=== PATIENT | male | born 1945 | race Caucasian/White ===

== ENCOUNTER → 2018-04-22 08:32 | Outpatient (CLI) | payer MEDICARE, BC, SELFPAY ==
[2018-04-22 09:21] LABS: BUN Creatinine Ratio 20.9 (6-22); Blood Urea Nitrogen 23 mg/dL (9-20); Carbon Dioxide 29 mmol/L (22-32); Chloride 102 mmol/L (98-107); Cholesterol 127 mg/dL (140-199); Estimated Glomerular Filt Rate > 60.0 mL/min (>60); Glucose 116 mg/dL (80-110); HDL Cholesterol 51 mg/dL (40-60); HEMOLYSIS < 15 (0-50); LDL Cholesterol Calculated 65 mg/dL (<100); Potassium 4.4 mmol/L (3.4-5.1); Sodium 139 mmol/L (137-145); Triglycerides 56 mg/dL (35-150)
[2018-04-22 09:30] LABS: Hemoglobin A1C% w Est Avg Glu 5.9 % (4.0-6.0)
== END ==
PROVIDERS: Visit Provider Internal Medicine
DX: I10 Essential (primary) hypertension (principal); R73.01 Impaired fasting glucose
CPT/HCPCS: 36415; 80048; 80061; 83036

== ENCOUNTER → 2019-05-10 14:06 | Outpatient (CLI) | payer MEDICARE, BC, SELFPAY | PROVIDERS: PCP Internal Medicine; Referring Provider Internal Medicine; Visit Provider Internal Medicine | DX: M85.88 Other specified disorders of bone density and structure, other site (principal); Z82.62 Family history of osteoporosis; Z87.891 Personal history of nicotine dependence | CPT/HCPCS: 77080 ==

== ENCOUNTER → 2019-05-11 08:54 | Outpatient (CLI) | payer MEDICARE, BC, SELFPAY ==
[2019-05-11 10:00] LABS: Aspartate Aminotransferase 27 IU/L (17-59); BUN Creatinine Ratio 21.1 (6-22); Blood Urea Nitrogen 20 mg/dL (9-20); Calcium 10.2 mg/dL (8.4-10.2); Carbon Dioxide 31 mmol/L (22-32); Chloride 102 mmol/L (98-107); Cholesterol 176 mg/dL (140-199); Estimated Glomerular Filt Rate > 60.0 mL/min (>60); Glucose 105 mg/dL (80-110); HDL Cholesterol 49 mg/dL (40-60); HEMOLYSIS < 15 (0-50); LDL Cholesterol Calculated 112 mg/dL (<100); Potassium 5.1 mmol/L (3.4-5.1); Sodium 137 mmol/L (137-145); Triglycerides 76 mg/dL (35-150)
== END ==
PROVIDERS: PCP Internal Medicine; Referring Provider Internal Medicine; Visit Provider Internal Medicine
DX: I10 Essential (primary) hypertension (principal); E78.2 Mixed hyperlipidemia
CPT/HCPCS: 36415; 80048; 80061; 84450

== ENCOUNTER → 2020-01-27 09:51 | Outpatient (CLI) | payer MEDICARE, BC, SELFPAY ==
--- NOTE | 2020-01-27 09:53 | DI.US.S_ITS ---
PROCEDURE: US ABDOMEN LIMITED INDICATIONS: VENTRAL HERNIA. ABDOMINAL WALL HERNIA TECHNIQUE: Real-time focused scanning was performed of the abdomen, with image documentation. COMPARISON: None. FINDINGS: At the area of clinical concern within the mid upper abdominal region to the left of the midline, there is a hernia seen which contains fluid and fat. No definite bowel is seen at this time. IMPRESSION: Ventral wall hernia seen at the area of clinical concern involving the upper abdomen. Please consider surgical consultation as well as a CT for further evaluation. Dictated by: Colton Vizcarra M.D. on 01/27/2020 at 10:18 Approved by: Colton Vizcarra M.D. on 01/27/2020 at 10:20
== END ==
PROVIDERS: PCP Internal Medicine; Referring Provider Internal Medicine; Visit Provider Internal Medicine
DX: K43.9 Ventral hernia without obstruction or gangrene (principal)
CPT/HCPCS: 76705

== ENCOUNTER → 2020-05-30 18:54 | Outpatient (ROUT) | payer MEDICARE, BC, SELFPAY ==
[2020-05-30 19:44] LABS: Aspartate Aminotransferase 25 IU/L (17-59); BUN Creatinine Ratio 29.5 (6-22); Blood Urea Nitrogen 28 mg/dL (9-20); Calcium 10.4 mg/dL (8.4-10.2); Carbon Dioxide 32 mmol/L (22-32); Chloride 102 mmol/L (98-107); Cholesterol 184 mg/dL (140-199); Estimated Glomerular Filt Rate > 60.0 mL/min (>60); Glucose 106 mg/dL (80-110); HDL Cholesterol 61 mg/dL (40-60); HEMOLYSIS < 15 (0-50); LDL Cholesterol Calculated 102 mg/dL (<100); Potassium 4.4 mmol/L (3.4-5.1); Sodium 140 mmol/L (137-145); Triglycerides 104 mg/dL (35-150)
== END ==
PROVIDERS: PCP Internal Medicine; Visit Provider Internal Medicine
DX: I10 Essential (primary) hypertension (principal); E78.2 Mixed hyperlipidemia; R73.01 Impaired fasting glucose
CPT/HCPCS: 80048; 80061; 83036; 84450

== ENCOUNTER → 2021-02-19 08:48 | Outpatient (CLI) | payer MEDICARE, BC, SELFPAY ==
[2021-02-19 09:32] LABS: COVID19 -Nasal RAPID Negative (Negative)
== END ==
PROVIDERS: PCP Internal Medicine; Visit Provider Nurse Practitioner Family
DX: Z20.822 Contact with and (suspected) exposure to COVID-19 (principal)
CPT/HCPCS: 87635

== ENCOUNTER → 2021-04-02 13:38 | Outpatient (CLI) | payer MEDICARE, BC, SELFPAY ==
--- NOTE | 2021-04-02 | DI.MRI.S_ITS ---
PROCEDURE: MR THORACIC SPINE WO CON INDICATIONS: BACK PAIN THORACIC AND LUMBAR TECHNIQUE: Noncontrast sagittal T1 spine echo and T2 fast spin echo, sagittal STIR, axial T1 and T2 fast spin echo through the thoracic spine. COMPARISON: None. FINDINGS: Remote appearing mild anterior wedging at T7, potentially due to degenerative changes as there is some Schmorl node formation and disc herniation into the superior endplate. Otherwise normal thoracic vertebral body height and alignment. No suspicious focal marrow signal abnormality or bone marrow edema. No spinal canal or neural foraminal stenosis at any level in the thoracic spine. Normal morphology and signal intensity of the thoracic cord. There is no syrinx. Regional soft tissues are normal. IMPRESSION: Mild degenerative changes in the midthoracic spine. No acute finding. Dictated by: Hugh Weinberg M.D. on 04/02/2021 at 14:46 Approved by: Hugh Weinberg M.D. on 04/02/2021 at 14:50
--- NOTE | 2021-04-02 | DI.MRI.S_ITS ---
PROCEDURE: MR LUMBAR SPINE WO CON INDICATIONS: BACK PAIN THORACIC AND LUMBAR TECHNIQUE: Noncontrast sagittal T1 spin echo and T2 fast echo, sagittal STIR, axial T1 and T2 fast spin echo through the lumbar spine. In cases with scoliosis, additional coronal T2 fast spin echo may be performed. COMPARISON: None. FINDINGS: Bilateral L5 pars defects. Approximately 6 mm anterolisthesis of L5 on S1. Otherwise normal alignment. Vertebral body heights maintained. No suspicious focal marrow signal abnormality or bone marrow edema. Facet osteoarthropathy from L3-L4 through L5-S1 with associated small facet effusions and subchondral cystic change. Normal position and appearance of the conus. Regional soft tissues are normal in appearance. T12-L1: No spinal canal or neural foraminal stenosis. L1-L2: No spinal canal or neural foraminal stenosis. L2-L3: No spinal canal or neural foraminal stenosis. L3-L4: Diffuse disc bulge and a superimposed broad-based posterior disc protrusion flatten and indent the ventral thecal sac. No displacement of the descending L4 nerve roots. Foraminal components of the disc bulge combine with buckling of the ligamentum flavum and facet hypertrophy to produce moderate bilateral neural foraminal stenosis. There is abutment and possible flattening of the exiting L3 nerve roots. L4-L5: Diffuse disc bulge with a superimposed broad-based posterior disc protrusion. No displacement of the descending L5 nerve roots. Foraminal components of the disc bulge and facet hypertrophy combine to produce mild bilateral neural foraminal stenosis. L5-S1: Severe subarticular zone stenosis and mild spinal canal stenosis due to pseudo-bulge as a function of the spondylolisthesis. Displacement of the descending bilateral S1 nerve roots, more pronounced on the left. Severe bilateral neural foraminal stenosis with flattening and deformation of the exiting L5 nerve roots by disc material. IMPRESSION: Grade 2 spondylolisthesis of L5 on S1 producing severe subarticular zone and neural foraminal stenosis. Correlate for any corresponding L5 or S1 radicular symptoms. Dictated by: Hugh Weinberg M.D. on 04/02/2021 at 14:51 Approved by: Hugh Weinberg M.D. on 04/02/2021 at 14:54
== END ==
PROVIDERS: PCP Internal Medicine; Referring Provider Internal Medicine; Visit Provider Internal Medicine
DX: M47.814 Spondylosis without myelopathy or radiculopathy, thoracic region (principal); M43.17 Spondylolisthesis, lumbosacral region; M48.07 Spinal stenosis, lumbosacral region; M54.50 Low back pain, unspecified; G95.9 Disease of spinal cord, unspecified
CPT/HCPCS: 72146; 72148

== ENCOUNTER → 2021-04-11 16:15 | Outpatient (CLI) | payer MEDICARE, BC, SELFPAY ==
--- NOTE | 2021-04-11 | DI.MRI.S_ITS ---
PROCEDURE: MR CERVICAL SPINE WO CON INDICATIONS: Radiculopathy, cervical region TECHNIQUE: Noncontrast sagittal T1 spin echo and T2 fast spin echo, sagittal STIR, foraminal oblique sagittal T2 fast spin echo, and axial gradient echo or T2 fast spin echo through the cervical spine. COMPARISON: None. FINDINGS: Image quality: Excellent. Alignment and Curvature: There is normal bony alignment. Bone Marrow: Mixed Modic type 2 and type 3 reactive endplate changes noted adjacent the C5-C6 and C6-C7 discs. Chronic appearing T1 anterior column compression deformity noted. Spinal Cord: Visualized spinal cord has normal size and signal. No cerebellar tonsillar herniation. Paraspinous Soft Tissues: No paravertebral masses. Prevertebral soft tissues are normal in thickness. C2-C3: Loss of disc signal. No central stenosis. No neural foraminal narrowing. No neural compression. C3-C4: Loss of disc signal. Mild, diffuse disc bulge. Small central disc protrusion. Mild bilateral facet hypertrophy. Moderate narrowing of the central canal. Moderate right and mild left neural foraminal narrowing. Central disc protrusion abuts and slightly contours the anterior margin of the cervical spinal cord. C4-C5: Loss of disc signal. Mild, diffuse disc bulge. Mild bilateral facet hypertrophy. Mild right uncovertebral joint hypertrophy. Mild to moderate narrowing of the central canal. Severe right and moderate left neural foraminal narrowing with compression of the exiting right C5 nerve root. C5-C6: Loss of disc signal and height. Moderate, diffuse disc bulge. Small central disc protrusion. Severe narrowing of the central canal with compression of the cervical spinal cord. Mild bilateral facet hypertrophy. Moderate right and mild left uncovertebral joint hypertrophy. Severe bilateral neural foraminal narrowing with compression of the exiting bilateral C6 nerve roots. C6-C7: Loss of disc signal and height. Mild, diffuse disc bulge. Mild ligamentum flavum hypertrophy. Severe narrowing of the central canal with marked compression of the cervical spinal cord. Mild bilateral facet hypertrophy. Moderate bilateral uncovertebral joint hypertrophy. Severe bilateral neural foraminal narrowing with compression of the exiting C7 nerve roots. C7-T1: Loss of disc signal. No central stenosis. No neural foraminal narrowing. No neural compression. IMPRESSION: 1. Multilevel degenerative disc disease. 2. Multilevel facet and uncovertebral arthropathy. 3. Severe C5-C6 and C6-C7 central canal narrowing with compression of the cervical spinal cord. 4. Severe right C4-C5 neural foraminal narrowing with compression of the exiting right C5 nerve root. Severe bilateral C5-C6 and C6-C7 neural foraminal narrowing with compression of the exiting bilateral C6 and C7 nerve roots. 5. Chronic T1 anterior column compression fracture. Dictated by: Cathi Medina MD, PhD on 04/12/2021 at 15:55 Approved by: Cathi Medina MD, PhD on 04/12/2021 at 16:03
== END ==
PROVIDERS: PCP Internal Medicine; Referring Provider Internal Medicine; Visit Provider Internal Medicine
DX: M50.10 Cervical disc disorder with radiculopathy, unspecified cervical region (principal); M47.22 Other spondylosis with radiculopathy, cervical region; M48.02 Spinal stenosis, cervical region; M48.54XA Collapsed vertebra, not elsewhere classified, thoracic region, initial encounter for fracture
CPT/HCPCS: 72141

== ENCOUNTER → 2021-07-01 11:30 | Outpatient (CLI) | payer MEDICARE, BC, SELFPAY ==
[2021-07-01 12:36] LABS: Hematocrit 41.6 % (41-53); Hemoglobin 14.2 g/dL (13.5-17.5); Mean Corpuscular HGB Conc 34.1 % (30-36); Mean Corpuscular Hemoglobin 32.6 PG (26-34); Mean Corpuscular Volume 95.7 fL (80-100); Platelet Count 277 X10^3/uL (150-400); Red Blood Cell Count 4.35 X10^6/uL (4.5-5.9); Red Cell Distribution Width 14.1 % (11.6-14.8); White Blood Cell Count 7.5 X10^3/uL (4.5-11.0)
[2021-07-01 13:02] LABS: Alanine Aminotransferase 19 IU/L (<50); Albumin 4.1 g/dL (3.5-5.0); Albumin Globulin Ratio 1.5 (1.0-2.8); Alkaline Phosphatase 60 U/L (38-126); Aspartate Aminotransferase 24 IU/L (17-59); BUN Creatinine Ratio 23.4 (6-22); Bilirubin Total 0.7 mg/dL (0.2-1.3); Blood Urea Nitrogen 22 mg/dL (9-20); Calcium 9.8 mg/dL (8.4-10.2); Carbon Dioxide 32 mmol/L (22-32); Chloride 100 mmol/L (98-107); Cholesterol 177 mg/dL (140-199); Estimated Glomerular Filt Rate > 60 mL/min (>60); Globulin 2.8 g/dL (1.7-4.1); Glucose 99 mg/dL (80-110); HDL Cholesterol 52 mg/dL (40-60); HEMOLYSIS < 15 (0-50); LDL Cholesterol Calculated 112 mg/dL (<100); Potassium 4.7 mmol/L (3.4-5.1); Sodium 137 mmol/L (137-145); Total Protein 6.9 g/dL (6.3-8.2); Triglycerides 66 mg/dL (35-150)
[2021-07-01 14:26] LABS: TSH w/ Reflex to FT4 0.76 uIU/mL (0.47-4.68)
== END ==
PROVIDERS: PCP Internal Medicine; Referring Provider Internal Medicine; Visit Provider Internal Medicine
DX: E78.2 Mixed hyperlipidemia (principal); I10 Essential (primary) hypertension
CPT/HCPCS: 36415; 80053; 80061; 84443; 85027

== ENCOUNTER 2021-07-30 08:43 | Day surgery (SDC) | payer MEDICARE, BC, SELFPAY ==
[2021-07-30 09:04] VITALS: BP 121/76; PULSE 85; RESP 16; TEMP 36.8; O2SAT 98; BMI 24.3
[2021-07-30] MEDS: LACTATED RINGERS 1,000 ML 200 ML IV (09:15)
--- NOTE | 2021-07-30 09:24 | P.HP_ITS ---
History of Present Illness History of Present Illness Date Patient Seen: 07/30/21 Time Patient Seen: 09:24 Chief complaint: SDC Narrative: The patient presents for colorectal screening. Most recent colonoscopy 5 years ago. He has a personal history of colonic polyps. No personal or family history of colon cancer. On further history denies any recent gastrointestinal symptoms. No nausea, vomiting, abdominal pain, loss of appetite, unexplained weight loss, change in bowel habits, diarrhea, constipation, melena, hematochezia, or bright red blood per rectum. Patient History Medical History Cervical myelopathy Cervical spinal stenosis Erectile dysfunction Essential hypertension History of colon polyps Medicare annual wellness visit, initial Mixed hyperlipidemia Neuroforaminal stenosis of lumbar spine Surgical History Hx of hernia repair Family & Social History Family History Mother Hypertension Stroke Sister Hypertension Father Lung cancer Social History: household members spouse Tobacco & Substance use: Smoking Status Former smoker alcohol intake current alcohol intake frequency 0-2 drinks per day Substance Use Type does not use Meds Home Medications and Allergies Home Medications Medication Instructions Recorded Confirmed Type acyclovir 400 mg tablet 400 mg PO BID 02/01/20 07/30/21 History ketoconazole 1 % shampoo 1 applic TOPICAL 2XW 07/01/21 07/01/21 History lisinopril 10 1 tab PO DAILY 07/01/21 07/30/21 History mg-hydrochlorothiazide 12.5 mg tablet metronidazole 0.75 % topical cream 1 applic TOPICAL BID 07/01/21 07/30/21 History psyllium husk 0.52 gram capsule 0.52 g PO BID cap 07/01/21 07/30/21 History (Metamucil) sildenafil (pulm.hypertension) 20 100 mg PO DAILY PRN tab 07/01/21 07/30/21 History mg tablet triamcinolone acetonide 0.1 % 1 applic TOPICAL .weekly ml 07/01/21 07/30/21 History lotion Allergies Allergy/AdvReac Type Severity Reaction Status Date / Time latex [LATEX] Allergy Mild rash Verified 07/01/21 09:57 Penicillins [PENICILLINS] Allergy Unknown Verified 07/01/21 09:57 Exam Vital Signs (past 8 hours): - 07/30/21 09:04 Temperature 98.3 F Pulse Rate 85 Respiratory Rate 16 Blood Pressure 121/76 Pulse Oximetry 98 Oxygen Delivery Method Room Air Narrative Exam Narrative: General adult male alert oriented no acute distress Chest nonlabored respirations Abdomen soft nontender Assessment & Plan Assessment & Plan narrative: The patient requires colorectal screening and colonoscopy is recommended. Technical details were discussed. Risks, benefits, alternatives explained. Risks including but not limited to myocardial infarction, aspiration, bleeding, pain, missed lesion, incomplete examination, need for further radiographic studies, colonic perforation, and need for major abdominal surgery were discussed. All questions were answered to their satisfaction, and they are in agreement with this plan. Time Spent With Patient Critical Care time: I spent a total of [] minutes of critical care time on this patient's care today ; this time is exclusive of procedural time.
[2021-07-30 09:30] LABS: COVID19 -Nasal RAPID Negative (Negative)
[2021-07-30] MEDS: fentaNYL 250 MCG/5 ML INJ 200 MCG IV (09:44)
[2021-07-30] MEDS: MIDAZOLAM 5 MG/5 ML VIAL 6 MG IV (09:44)
--- NOTE | 2021-07-30 10:11 | PM.OP.COLON ---
Operative Date/Time/Diagnoses Date of procedure: 07/30/21 Time of procedure: 10:11 Pre-op diagnosis: Personal history of colonic polyps Post-op diagnosis: same Procedure & Clinicians Study performed: Colonoscopy Same procedure as scheduled: Yes Indications: Personal history of colonic polyps Surgeon: Brennon Thorne Procedure Notes Procedure in detail: Medications: Conscious sedation using 5mg IV midazolam and 150mcg IV of fentanyl The history and physical was performed/updated and the patient is ASA class is 2. The procedure was discussed in detail with the patient. Potential risks complications including infection, bleeding, missed diagnosis, perforation, need for surgery, and were explained. Their questions were answered and informed consent was obtained. Patient was brought to the procedure room and placed standard monitoring equipment. The patient's vital signs were monitored continuously throughout the entire procedure. Prior to starting time-out was performed. The patient was placed in the left lateral recumbent position. Procedural sedation was administered. Examination began with a thorough inspection of the perianal area there was no evidence of fissures, fistulae, external hemorrhoids or cutaneous malignancy. The colonoscopy scope was then placed into the anal canal and was advanced to the cecum, which was identified by the ileocecal valve, the appendiceal orifice and the confluence of the taenia. The scope was then slowly withdrawn examining colon thoroughly in all directions, irrigating it of any residual stool. FINDINGS 1. No masses or polyps 2. Extensive diverticulosis 3. Internal hemorrhoids The patient tolerated the procedure well. They will be discharged once criteria are met. The prep was of good/excellent quality. The withdrawl time was 6 minutes. The sedation time was 25 minutes. Specimen(s): none sent Complications: none Impression: Diverticulosis Post-procedure Recommendations: High fiber diet Plan for aftercare: No further colonoscopy is likely needed Disposition: same day surgery
[2021-07-30 10:15] VITALS: BP 115/64; PULSE 80; RESP 16; TEMP 36.6; O2SAT 98
[2021-07-30 10:20] VITALS: BP 114/66; PULSE 71; RESP 17; O2SAT 97
[2021-07-30 10:25] VITALS: BP 128/70; PULSE 78; RESP 19; O2SAT 96
[2021-07-30 10:30] VITALS: BP 133/79; PULSE 79; RESP 18; O2SAT 97
[2021-07-30 10:31] VITALS: BP 123/75; PULSE 75; RESP 16; O2SAT 97
== END 2021-07-30 10:47 | disposition home or self-care (01) ==
PROVIDERS: PCP Internal Medicine; Referring Provider Surgery; Visit Provider Surgery
PROC: 0DJD8ZZ Inspection of Lower Intestinal Tract, Via Natural or Artificial Opening Endoscopic (ICD-10-PCS; CPT 45378; principal; 2021-07-30 09:45)
DX: Z12.11 Encounter for screening for malignant neoplasm of colon (principal); Z86.010 Personal history of colon polyps; Z20.822 Contact with and (suspected) exposure to COVID-19; K57.30 Diverticulosis of large intestine without perforation or abscess without bleeding; K64.8 Other hemorrhoids
CPT/HCPCS: G0105; 87635; 99152; 99153; C9803; J2250; J3010

== ENCOUNTER → 2021-09-03 08:30 | Outpatient (CLI) | payer MEDICARE, BC, SELFPAY ==
--- NOTE | 2021-09-03 08:32 | DI.RAD.S_ITS ---
PROCEDURE: XR CHEST 2V INDICATIONS: cough TECHNIQUE: 2 views of the chest were acquired. COMPARISON: None. FINDINGS: Surgical changes and devices: None. Lungs and pleura: Lungs are slightly hyperexpanded and clear. Small calcified granuloma is seen in the peripheral left upper lobe. No pleural effusions or pneumothorax. Mediastinum: Mediastinal contours are normal. Heart size is normal. Bones and chest wall: No suspicious bony abnormalities. Soft tissues appear unremarkable. IMPRESSION: No acute cardiopulmonary abnormality. Mildly hyperexpanded lungs are nonspecific but can be seen in the setting of COPD. Dictated by: Max Dominguez M.D. on 09/03/2021 at 11:30 Approved by: Max Dominguez M.D. on 09/03/2021 at 11:33
== END ==
PROVIDERS: PCP Internal Medicine; Referring Provider Physician Assistant; Visit Provider Physician Assistant
DX: R05.9 Cough, unspecified (principal)
CPT/HCPCS: 71046

== ENCOUNTER → 2021-10-22 11:03 | Outpatient (CLI) | payer MEDICARE, BC, SELFPAY ==
[2021-10-22 12:04] LABS: Add Manual Diff / Slide Review NO; Basophils Absolute Auto 0 /uL (0-100); Basophils Percent Auto 0.3 % (0-2); Eosinophils Absolute Auto 200 /uL (0-450); Eosinophils Percent Auto 2.9 % (2-4); Hematocrit 39.6 % (41-53); Hemoglobin 13.7 g/dL (13.5-17.5); Lymphocytes Absolute Auto 1000 /uL (1100-4500); Lymphocytes Percent Auto 15.3 % (25-40); Mean Corpuscular HGB Conc 34.5 % (30-36); Mean Corpuscular Hemoglobin 33.1 PG (26-34); Monocytes Absolute Auto 900 /uL (0-900); Monocytes Percent Auto 14.6 % (3-14); Neutrophils Absolute Auto 4300 /uL (1500-7000); Neutrophils Percent Auto 66.9 % (50-75); Platelet Count 249 X10^3/uL (150-400); Red Blood Cell Count 4.13 X10^6/uL (4.5-5.9); Red Cell Distribution Width 15.1 % (11.6-14.8); White Blood Cell Count 6.4 X10^3/uL (4.5-11.0)
[2021-10-22 14:59] LABS: BUN Creatinine Ratio 32.4 (6-22); Blood Urea Nitrogen 24 mg/dL (9-20); Calcium 9.1 mg/dL (8.4-10.2); Carbon Dioxide 31 mmol/L (22-32); Chloride 99 mmol/L (98-107); Estimated Glomerular Filt Rate > 60 mL/min (>60); Glucose 123 mg/dL (80-110); HEMOLYSIS < 15 (0-50); Potassium 4.3 mmol/L (3.4-5.1); Sodium 135 mmol/L (137-145)
== END ==
PROVIDERS: PCP Internal Medicine; Referring Provider Orthopaedic Surgery; Visit Provider Orthopaedic Surgery
DX: I10 Essential (primary) hypertension (principal)
CPT/HCPCS: 36415; 80048; 85025

== ENCOUNTER → 2022-05-08 09:13 | Outpatient (CLI) | payer MEDICARE, SELFPAY ==
--- NOTE | 2022-05-08 09:15 | DI.RAD.S_ITS ---
PROCEDURE: XR KNEE LT 3V INDICATIONS: left knee djd TECHNIQUE: Three views of the knee were acquired. COMPARISON: None. FINDINGS: Bones: No fractures or dislocations. No suspicious bony lesions. There is mild narrowing of the medial femorotibial compartment joint space and the patellofemoral compartment joint space. The lateral femorotibial compartment joint space is also mildly narrowed centrally. Soft tissues: No joint effusion. No suspicious soft tissue calcifications. Atherosclerotic calcifications are present posteriorly. IMPRESSION: Mild tricompartmental osteoarthrosis. Approved by: Max Dominguez M.D. on 05/08/2022 at 10:31
== END ==
PROVIDERS: PCP Internal Medicine; Referring Provider Physical Medicine & Rehabilitation; Visit Provider Physical Medicine & Rehabilitation
DX: M17.12 Unilateral primary osteoarthritis, left knee (principal)
CPT/HCPCS: 73562

== ENCOUNTER 2022-05-20 14:15 | Outpatient (CLI) | payer MEDICARE, SELFPAY ==
[2022-05-20] VITALS (8 sets, daily range): BP systolic 115–135; BP diastolic 59–72; PULSE 60–75; RESP 16–20; TEMP 36.4; O2SAT 96–100
--- NOTE | 2022-05-20 14:16 | DI.RAD.S_ITS ---
PROCEDURE: PAIN L/S TRANSFORAM INJECT ROSA COMPARISON: None. INDICATIONS: SPONDYLOSIS FINDINGS: Access needle tips at the bilateral L5-S1 neural foramina. Injection of small amount of contrast material demonstrates access needle tips are in expected position and are extra thecal. IMPRESSION: Access needles at the bilateral L5-S1 neural foramina for transforaminal epidural steroid injection. Dictated by: Cathi Medina MD, PhD on 05/20/2022 at 16:11 Approved by: Cathi Medina MD, PhD on 05/20/2022 at 16:12
[2022-05-20] MEDS: MIDAZOLAM 2 MG/2 ML VIAL IV (14:57)
[2022-05-20] MEDS: DEXAMETHASONE 10 MG/ML VIAL 20 MG INJ (15:01)
[2022-05-20] MEDS: BETAMETHASONE 30 MG/5 ML MDV 12 MG INJ (15:01)
[2022-05-20] MEDS: IOPAMIDOL 15 ML VIAL 3 ML INJ (15:01)
[2022-05-20] MEDS: BUPIVACAINE 0.25% (PF) VIAL 2 ML INJ (15:02)
--- NOTE | 2022-05-20 15:21 | PM.PROC.IR.1 ---
Date/Time/Diagnoses Date of procedure: 05/20/22 Time of procedure: 15:21 Pre-procedure diagnosis: 1. FORAMINAL STENOSIS WITH LE SYMPTOMS Post-procedure diagnosis: same Procedure Notes Procedure: 1. FLUOROSCOPICALLY GUIDED CONTRAST CONTROLLED TRANSFORAMINAL EPIDURAL STEROID INJECTION - BILATERAL L5/S1 TFESI Indications: Eric is referred by Dr. Toledo for treatment of Foraminal Stenosis with bilateral LE Symptoms Physician: Raphael Banda Total Fluoroscopy time (seconds): 16 Total sedation minutes: 15 Complications: none Procedure in detail & Post-procedure care: FINDINGS Foraminal Nerve Root Compression secondary to disc disease and facet hypertrophy DESCRIPTION OF PROCEDURE Following review of allergy and review of potential side effects and complications, including, but not necessarily limited to, infection, allergic reaction, local tissue breakdown, stroke, temporary or permanent nerve injury, paralysis, and possible , the patient indicated that the patient understood and agreed to proceed. An informed consent document was signed by the patient, witnessed by a nurse, and placed in the patient's chart. Additionally, other treatment options including medications, modalities, and physical therapy were reviewed with the patient. After review of previous anaesthesic history and IV conscious sedation the patient was deemed safe to proceed with today?s procedure with IV conscious sedation as ASA class II designation. Safety time-out was performed to confirm patient ID, procedure to be performed and site of procedure. IV sedation was accomplished with a combination of 2mg of Versed was administered by the RN after DO order, titrated to patient comfort during the course of the procedure while the patient remained responsive to all verbal commands In the prone position following sterile prep and drape of the lumbar region, the right L5/S1 posterior neuroforamen was identified fluoroscopically. The skin was anesthetized via a 25-gauge 1.5-inch needle with 1% lidocaine solution. At this point, a 25-gauge 3.5-inch spinal needle was atraumatically introduced and advanced under fluoroscopic guidance through the posterior right L5/S1 neuroforamen to approximately the anterior aspect of the canal. Depth was confirmed on lateral view. Following negative aspiration, injection of approximately 1.5cc of Isovue 200 under live fluoroscopy in the AP view confirmed excellent flow along the nerve root, into the epidural space without vascular or intrathecal uptake observed Radiological data, including multiple fluoroscopic views of the lumbosacral spine, reveal a spinal needle at the right L5/S1 posterior neuroforamen. Subsequent views show flow of contrast material flowing superiorly and inferiorly along the nerve root confirming epidural flow. Subsequently, a test dose of 1.5cc of 1% lidocaine solution was administered and patient was observed for two minutes for signs or symptoms of complications, including abdominal pain, shortness of breath, bilateral upper or lower extremity weakness, nausea and vomiting, prior to steroid injection. At this point, a total of 3cc or 20mg of dexamethasone and 6mg betamethasone was injected without incident. Attention was then refocused to the left L5/S1 level where the identical procedure was replicated. The procedure tolerated the procedure well without signs or symptoms of complications prior to transfer to the recovery area continued monitoring without incident. The patient was then transferred to the recovery area where they were observed for an appropriate time after the injection. The patient reported a VAS score of 7 prior to the procedure and a post-procedure VAS of 0. POST OP INSTRUCTIONS The patient was provided a Pain Log to continue to record their response to the target-specific procedure prior to follow-up visit with their referring physician. Additionally, specific post-injection care instructions and a contact number to our office were provided if concerns arise regarding possible complications associated with the procedure are suspected.
== END 2022-05-20 15:33 | disposition home or self-care (01) ==
LOC: RAD 14:16
PROVIDERS: PCP Internal Medicine; Referring Provider Physical Medicine & Rehabilitation; Visit Provider Physical Medicine & Rehabilitation
DX: M48.07 Spinal stenosis, lumbosacral region (principal); M51.17 Intervertebral disc disorders with radiculopathy, lumbosacral region
CPT/HCPCS: 64483; 99152; J0702; J1100; J2250; J3490

== ENCOUNTER → 2022-07-03 15:42 | Outpatient (CLI) | payer MEDICARE, SELFPAY ==
[2022-07-03 18:08] LABS: BUN Creatinine Ratio 24.7 (6-22); Blood Urea Nitrogen 22 mg/dL (9-20); Calcium 9.2 mg/dL (8.4-10.2); Carbon Dioxide 32 mmol/L (22-32); Chloride 99 mmol/L (98-107); Cholesterol 152 mg/dL (140-199); Estimated Glomerular Filt Rate > 60 mL/min (>60); Glucose 112 mg/dL (80-110); HDL Cholesterol 54 mg/dL (40-60); HEMOLYSIS 16 (0-50); LDL Cholesterol Calculated 84 mg/dL (<100); Potassium 4.2 mmol/L (3.4-5.1); Sodium 137 mmol/L (137-145); Triglycerides 70 mg/dL (35-150)
== END ==
PROVIDERS: PCP Internal Medicine; Referring Provider Internal Medicine; Visit Provider Internal Medicine
DX: E78.2 Mixed hyperlipidemia (principal); I10 Essential (primary) hypertension
CPT/HCPCS: 36415; 80048; 80061

== ENCOUNTER → 2023-01-15 08:22 | Outpatient (CLI) | payer MEDICARE, SELFPAY ==
[2023-01-15 09:52] LABS: Hematocrit 42.8 % (41-53); Hemoglobin 14.3 g/dL (13.5-17.5); Mean Corpuscular HGB Conc 33.5 % (30-36); Mean Corpuscular Hemoglobin 33.1 PG (26-34); Mean Corpuscular Volume 98.9 fL (80-100); Platelet Count 245 X10^3/uL (150-400); Red Blood Cell Count 4.33 X10^6/uL (4.5-5.9); Red Cell Distribution Width 13.9 % (11.6-14.8); White Blood Cell Count 5.3 X10^3/uL (4.5-11.0)
[2023-01-15 10:27] LABS: Alanine Aminotransferase 20 IU/L (<50); Albumin 4.1 g/dL (3.5-5.0); Albumin Globulin Ratio 1.6 (1.0-2.8); Alkaline Phosphatase 67 U/L (38-126); Aspartate Aminotransferase 23 IU/L (17-59); Blood Urea Nitrogen 20 mg/dL (9-20); Calcium 9.9 mg/dL (8.4-10.2); Carbon Dioxide 33 mmol/L (22-32); Chloride 98 mmol/L (98-107); Cholesterol 161 mg/dL (140-199); Estimated Glomerular Filt Rate > 60 mL/min (>60); Globulin 2.6 g/dL (1.7-4.1); Glucose 113 mg/dL (80-110); HDL Cholesterol 54 mg/dL (40-60); HEMOLYSIS < 15 (0-50); LDL Cholesterol Calculated 94 mg/dL (<100); Potassium 4.6 mmol/L (3.4-5.1); Sodium 136 mmol/L (137-145); Total Protein 6.7 g/dL (6.3-8.2); Triglycerides 66 mg/dL (35-150)
[2023-01-15 10:49] LABS: TSH w/ Reflex to FT4 0.97 uIU/mL (0.47-4.68)
== END ==
PROVIDERS: PCP Internal Medicine; Referring Provider Internal Medicine; Visit Provider Internal Medicine
DX: R63.4 Abnormal weight loss (principal); E78.2 Mixed hyperlipidemia; I10 Essential (primary) hypertension
CPT/HCPCS: 36415; 80053; 80061; 84443; 85027

== ENCOUNTER → 2023-07-06 15:18 | Outpatient (CLI) | payer MEDICARE, SELFPAY ==
[2023-07-06 16:38] LABS: Hemoglobin 14.7 g/dL (13.5-17.5); Mean Corpuscular HGB Conc 34.2 % (30-36); Mean Corpuscular Hemoglobin 35.6 PG (26-34); Platelet Count 232 X10^3/uL (150-400); Red Blood Cell Count 4.14 X10^6/uL (4.5-5.9); Red Cell Distribution Width 17.8 % (11.6-14.8)
[2023-07-06 16:53] LABS: Alanine Aminotransferase 21 IU/L (<50); Albumin 4.6 g/dL (3.5-5.0); Albumin Globulin Ratio 1.6 (1.0-2.8); Alkaline Phosphatase 69 U/L (38-126); Aspartate Aminotransferase 31 IU/L (17-59); BUN Creatinine Ratio 30.8 (6-22); Bilirubin Total 0.7 mg/dL (0.2-1.3); Blood Urea Nitrogen 24 mg/dL (9-20); Carbon Dioxide 32 mmol/L (22-32); Chloride 102 mmol/L (98-107); Estimated Glomerular Filt Rate > 60 mL/min (>60); Globulin 2.8 g/dL (1.7-4.1); Glucose 100 mg/dL (80-110); HEMOLYSIS 25 (0-50); Potassium 4.2 mmol/L (3.4-5.1); Sodium 138 mmol/L (137-145); Total Protein 7.4 g/dL (6.3-8.2)
[2023-07-06 17:16] LABS: TSH w/ Reflex to FT4 0.75 uIU/mL (0.47-4.68)
== END ==
PROVIDERS: PCP Internal Medicine; Referring Provider Internal Medicine; Visit Provider Internal Medicine
DX: R63.4 Abnormal weight loss (principal)
CPT/HCPCS: 36415; 80053; 84443; 85027

== ENCOUNTER → 2024-07-11 15:21 | Outpatient (CLI) | payer MEDICARE, SELFPAY ==
[2024-07-11 17:00] LABS: Hematocrit 45.4 % (41-53); Hemoglobin 15.4 g/dL (13.5-17.5); Mean Corpuscular Hemoglobin 37.5 PG (26-34); Mean Corpuscular Volume 110.5 fL (80-100); Platelet Count 242 X10^3/uL (150-400); Red Blood Cell Count 4.11 X10^6/uL (4.5-5.9); White Blood Cell Count 5.3 X10^3/uL (4.5-11.0)
[2024-07-11 17:22] LABS: Alanine Aminotransferase 22 IU/L (<50); Albumin 4.5 g/dL (3.5-5.0); Albumin Globulin Ratio 1.6 (1.0-2.8); Alkaline Phosphatase 87 U/L (38-126); Aspartate Aminotransferase 29 IU/L (17-59); BUN Creatinine Ratio 24.2 (6-22); Bilirubin Total 0.6 mg/dL (0.2-1.3); Blood Urea Nitrogen 22 mg/dL (9-20); Calcium 9.9 mg/dL (8.4-10.2); Carbon Dioxide 32 mmol/L (22-32); Chloride 98 mmol/L (98-107); Cholesterol 162 mg/dL (140-199); Estimated Glomerular Filt Rate > 60 mL/min (>60); Globulin 2.8 g/dL (1.7-4.1); Glucose 103 mg/dL (70-99); HDL Cholesterol 51 mg/dL (40-60); HEMOLYSIS < 15 (0-50); LDL Cholesterol Calculated 93 mg/dL (<100); Potassium 4.5 mmol/L (3.4-5.1); Sodium 136 mmol/L (137-145); Total Protein 7.3 g/dL (6.3-8.2); Triglycerides 90 mg/dL (35-150)
[2024-07-11 17:53] LABS: TSH w/ Reflex to FT4 0.79 uIU/mL (0.47-4.68)
== END ==
PROVIDERS: PCP Internal Medicine; Referring Provider Internal Medicine; Visit Provider Internal Medicine
DX: E78.2 Mixed hyperlipidemia (principal); I10 Essential (primary) hypertension; K59.01 Slow transit constipation
CPT/HCPCS: 36415; 80053; 80061; 84443; 85027

== ENCOUNTER → 2024-07-21 15:16 | Outpatient (CLI) | payer MEDICARE, SELFPAY ==
[2024-07-21 17:05] LABS: Vitamin B12 Reflex MMA if <400 358 pg/mL (239-931)
== END ==
PROVIDERS: PCP Internal Medicine; Referring Provider Internal Medicine; Visit Provider Internal Medicine
DX: Z98.890 Other specified postprocedural states (principal); E53.8 Deficiency of other specified B group vitamins
CPT/HCPCS: 36415; 82607; 83921

== ENCOUNTER → 2024-07-28 06:45 | Outpatient (CLI) | payer MEDICARE, SELFPAY ==
--- NOTE | 2024-07-28 06:46 | DI.ECHO.S_ITS ---
[facility] : : [id number] : : [place] : : [id number] : : Phone: [phone] Echocardiogram Report + + :Name: CELINA GONZALEZ JR Study Date: 07/28/2024 Height: 70.5 in: :[facility] ReadingLocation: Weight: 150 lb : : Gender: Male BSA: 1.9 m2 : :: 1945 Age: 79 yrs BP: 120/70 mmHg: :Reason For Study: TACHYCARDIA : :Ordering Physician: DOMINIQUE, : :REJI Performed By: Tamara Alberto : :Referring: REJI FOX : + + Interpretation Summary 1. The left ventricular contractility is normal. Estimate ejection fraction is greater than 55% without segmental wall motion abnormalities. No LVH. No diastolic dysfunction. 2. The right ventricle contractility is normal. 3. All cardiac chambers are of normal size. 4. Moderate aortic insufficiency. 5. Trace to mild pulmonic insufficiency. 6. No obvious intracardiac shunts. 7. No obvious intracardiac masses nor thrombi. 8. No hemodynamically significant pericardial effusion. 9. Low right-sided filling pressures. Conclusion: Normal biventricular systolic function with mild to moderate valvular insufficiencies. Procedure: A two-dimensional transthoracic echocardiogram with color flow and Doppler was performed. The study quality was technically adequate. There is no prior echocardiogram noted for this patient. The heart rate ranged between 54-118 bpm during the study. Short segments of increasing heart rate throughout. Left Ventricle: The left ventricle is normal in size and wall thickness. The ejection fraction is estimated to be 55-60%. Right Ventricle: The right ventricle is normal in size and function. Atria: The left atrial size is normal. Right atrial size is normal. There is no Doppler evidence for an interatrial shunt. Mitral Valve: The mitral valve leaflets appear to open well. There is no mitral regurgitation noted. Aortic Valve: The aortic valve is trileaflet. The aortic valve opens well. There is no aortic valve stenosis. There is moderate aortic regurgitation. Tricuspid Valve: The tricuspid valve leaflets are thin and pliable. There is a trace or physiologic amount of tricuspid regurgitation. Pulmonary artery pressures cannot be estimated because of the lack of a measurable TR jet velocity. Pulmonic Valve: The pulmonic valve leaflets are thin and pliable; valve motion is normal. There is mild pulmonic regurgitation. Great Vessels: The aortic root is normal size. The ascending aorta is at the upper limits of normal in size. The IVC is of normal diameter and collapses greater than 50% with a sniff. This suggests a low right atrial pressure of 3 mm Hg. Pericardium/ Pleura There is no pericardial effusion. There is no pleural effusion. MMode/2D Measurements & Calculations LVIDd: 5.0 cm LVOT diam: 2.1 cm LVIDs: 3.0 cm Ao root diam: 3.9 cm FS: 38.9 % asc Aorta Diam: 3.9 cm EPSS: 0.70 cm Ao Arch Diam (Prox Trans): 3.5 cm IVSd: 0.83 cm LVPWd: 0.62 cm LV thacker. diameter/BSA (cm/m^2): 2.7 LV sys. diameter/BSA (cm/m^2): 1.6 LA A2 area: 13.2 cm2 RA long axis: 4.8 cm LA A4 area: 13.3 cm2 RA area: 13.8 cm2 LA length (vol): 4.3 cm RA vol: 33.9 ml LA vol: 34.5 ml RA : 18.2 ml/m2 LA vol index: 18.5 ml/m2 IVC diam: 1.6 cm RVD1 (basal): 3.1 cm RVD2 (mid): 2.8 cm TAPSE: 1.8 cm Doppler Measurements & Calculations Ao V2 max: 139.8 cm/sec LVOT Max Dejon: 104.7 cm/sec Ao V2 mean: 84.8 cm/sec LV V1 max P.4 mmHg Ao max P.8 mmHg LV V1 VTI: 19.1 cm Ao mean P.4 mmHg FIDEL(I,D): 2.6 cm2 Ao V2 VTI: 25.5 cm FIDEL(V,D): 2.6 cm2 sev ratio: 0.75 FIDEL indexed to BSA (cm^2/m^2): 1.4 AI P1/2t: 682.2 msec AI dec slope: 162.4 cm/sec2 MV E max dejon: 63.3 cm/sec PA V2 max: 85.7 cm/sec MV A max dejon: 82.2 cm/sec PA V2 mean: 51.7 cm/sec MV E/A: 0.77 PA mean P.3 mmHg Med Peak E' Dejon: 6.6 cm/sec PA pr(Accel): 21.2 mmHg E/E' med: 9.6 Lat Peak E' Dejon: 8.7 cm/sec E/E' lat: 7.3 E/e' average: 8.5 MV dec time: 0.24 sec SV(LVOT): 66.0 ml Reading Physician:JARROD
== END ==
PROVIDERS: PCP Internal Medicine; Referring Provider Internal Medicine; Visit Provider Internal Medicine
DX: I35.1 Nonrheumatic aortic (valve) insufficiency (principal); I37.1 Nonrheumatic pulmonary valve insufficiency; R00.0 Tachycardia, unspecified
CPT/HCPCS: 93306

== ENCOUNTER → 2024-08-03 16:02 | Outpatient (ROUT) | payer MEDICARE, SELFPAY ==
[2024-08-10 01:07] LABS: Methylmalonic Acid,Serum 292 nmol/L (0-378)
== END ==
PROVIDERS: PCP Internal Medicine; Visit Provider Internal Medicine
DX: Z13.89 Encounter for screening for other disorder (principal)
CPT/HCPCS: 83921

== ENCOUNTER → 2025-01-23 14:51 | Outpatient (CLI) | payer MEDICARE, SELFPAY ==
[2025-01-23 15:15] LABS: Hematocrit 43.1 % (41-53); Hemoglobin 14.4 g/dL (13.5-17.5); Mean Corpuscular HGB Conc 33.5 % (30-36); Mean Corpuscular Hemoglobin 35.2 PG (26-34); Mean Corpuscular Volume 105.0 fL (80-100); Platelet Count 231 X10^3/uL (150-400)
[2025-01-23 15:47] LABS: Alanine Aminotransferase 19 IU/L (<50); Albumin 4.3 g/dL (3.5-5.0); Albumin Globulin Ratio 1.6 (1.0-2.8); Alkaline Phosphatase 85 U/L (38-126); Blood Urea Nitrogen 18 mg/dL (9-20); Calcium 9.7 mg/dL (8.4-10.2); Carbon Dioxide 31 mmol/L (22-32); Chloride 99 mmol/L (98-107); Estimated Glomerular Filt Rate > 60 mL/min (>60); Globulin 2.7 g/dL (1.7-4.1); Glucose 106 mg/dL (70-99); HEMOLYSIS < 15 (0-50); Potassium 4.5 mmol/L (3.4-5.1); Sodium 136 mmol/L (137-145); Total Protein 7.0 g/dL (6.3-8.2)
[2025-01-23 16:16] LABS: TSH w/ Reflex to FT4 1.00 uIU/mL (0.47-4.68)
[2025-01-23 16:18] LABS: Prostate Specific Antigen 0.843 ng/mL (0.10-4.00)
[2025-01-23 16:39] LABS: Vitamin B12 Reflex MMA if <400 395 pg/mL (239-931)
== END ==
PROVIDERS: PCP Internal Medicine; Referring Provider Internal Medicine; Visit Provider Internal Medicine
DX: E78.2 Mixed hyperlipidemia (principal); N40.1 Benign prostatic hyperplasia with lower urinary tract symptoms; R63.4 Abnormal weight loss; N13.8 Other obstructive and reflux uropathy; E53.8 Deficiency of other specified B group vitamins
CPT/HCPCS: 36415; 80053; 82607; 83921; 84153; 84443; 85027

== ENCOUNTER → 2025-02-20 05:41 | Outpatient (CLI) | payer MEDICARE, SELFPAY | PROVIDERS: PCP Internal Medicine; Referring Provider Internal Medicine; Visit Provider Internal Medicine | DX: R00.0 Tachycardia, unspecified (principal) | CPT/HCPCS: 93246 ==